=== PATIENT | female | born 1990 | race Caucasian/White ===

== ENCOUNTER 2020-12-11 00:02 | Inpatient (IN) ==
[2020-12-11] MEDS ORDERED: ONDANSETRON 4 MG TAB.RAPDIS PO PRN (00:06)
[2020-12-11] MEDS ORDERED: INSULIN REGULAR, HUMAN 100 UNITS in NORMAL SALINE 100 ML IV PRN ×2 (00:06)
[2020-12-11] MEDS ORDERED: OXYTOCIN/0.9 % SODIUM CHLORIDE 30 UNITS/500 ML BAG IV ONE (00:06)
[2020-12-11] MEDS ORDERED: MISOPROSTOL 100 MCG TABLET VG PRN (00:09)
--- NOTE | 2020-12-11 11:35 | HP ---
Chief Complaint - Chief Complaint Date of Service: 12/11/20 Time of Service: 10:45 Chief Complaint: Medical induction of labor History of Present Illness: 30 yo at 39w0d admitted for induction of labor due to type 2 DM well controlled on diet. This complicated by anemia, asthma, anxiety, depression, type 2 DM, and obesity. Rh positive Rubella immune GBS negative Medical History (Last Reviewed 12/11/20 @ 11:12 by Enrique Das DO) Anemia affecting (Acute) Onset Date: 09/28/20 Ovarian cyst (Acute) 3.14cm simple cyst on 05/12/20. History of gestational diabetes mellitus (GDM) (Chronic) Asthma (Inactive) Generalized anxiety disorder (Chronic) Major depressive disorder, recurrent, moderate (Inactive) Anemia Onset Date: Unknown Anxiety Onset Date: ~08/2017 Asthma Onset Date: ~2014 Exercised induced. Has used inhaler 2-3 times in the last 6 months. (05/12/2020) Body piercing Common migraine Onset Date: ~2014 Depression Onset Date: ~08/2017 Vitiligo Gestational diabetes Onset Date: ~2017 Failed 1 hour at 8 weeks, 3 hour gtt at 10 weeks last - levels checked due to family history. Insulin controlled. Last eye exam 2017. No follow-up testing post . depression UTI (urinary tract infection) Eye exam normal Onset Date: ~2017 Surgical History: Surgical History (Last Reviewed 12/11/20 @ 11:12 by Enrique Das DO) [place] teeth extracted Onset Date: ~2008 Family History: Family History (Last Reviewed 12/11/20 @ 11:12 by Enrique Das DO) Mother Hypertension Gestational diabetes Father Sleep apnea Hyperlipemia Diabetes Grandfather Diabetes Paternal Hyperlipemia Paternal Grandmother Diabetes Grandfather Diabetes Maternal Grandmother Diabetes Maternal Social History: (Last Reviewed 12/11/20 @ 11:12 by Enrique Das DO) Social History: adopted: No Marital status: lives independently: No household members: spouse current occupational status: employed current occupation: [employer]- [employer] Highest level of school completed/degree received: Bachelor's degree Sexually Active: Yes Service: No Tobacco: Smoking Status: Never smoker Alcohol: alcohol intake: current alcohol intake frequency: holiday/special occasion details: none since +UPT Substance Use: substance use type: does not use Dietary Habits: caffeine: Yes Type: carbonated beverages Exercise: Physical activity type: none Review Of Systems (GEN) - Review of Systems Generalized/Overall Review: Present: No Symptoms Reported EENTM: Present: No Symptoms Reported Respiratory: Present: No Symptoms Reported Cardiac: Present: No Symptoms Reported Abdominal: Present: No Symptoms Reported Genitourinary: Present: No Symptoms Reported Musculoskeletal: Present: No Symptoms Reported Neurological: Present: No Symptoms Reported Skin: Present: No Symptoms Reported Endocrine: Present: No Symptoms Reported Allergies/Adverse Reactions: Allergies Allergy/AdvReac Type Severity Reaction Status Date / Time No Known Allergies Allergy Verified 12/11/20 00:09 Home Medications: HOME MEDICATIONS albuterol sulfate 90 mcg/actuation aerosol inhaler 2 inh IH Q4H PRN 10/25/19 [Last Taken Unknown] escitalopram oxalate 20 mg tablet 20 mg PO DAILY #30 tab 04/08/20 [Last Taken Unknown] hydroxyzine HCl 25 mg tablet 25 mg PO Q4H PRN #30 tab 05/12/20 [Last Taken Unknown] lancets 30 gauge See Rx Instructions [id number] .MEDSUPPLY #100 ea 05/13/20 [Last Taken Unknown] blood sugar diagnostic See Rx Instructions [id number] .MEDSUPPLY #100 ea 05/14/20 [Last Taken Unknown] blood-glucose meter See Rx Instructions [id number] .MEDSUPPLY #1 ea 05/14/20 [Last Taken Unknown] acetone (urine) test See Rx Instructions .ROUTE .MEDSUPPLY #100 ea 06/09/20 [Last Taken Unknown] pen needle, diabetic 31 gauge x 01/10" See Rx Instructions .ROUTE .MEDSUPPLY #100 ea 06/09/20 [Last Taken Unknown] prenat.vits,germaine,[id number]-awfz-odgxc 1 tab PO DAILY 06/09/20 [Last Taken Unknown] ascorbic acid (vitamin C) 500 mg tablet 500 mg PO DAILY #30 tab 09/29/20 [Last Taken Unknown] ferrous sulfate 325 mg (65 mg iron) tablet 325 mg PO DAILY #30 tab 09/29/20 [Last Taken Unknown] magnesium oxide 250 mg PO DAILY #30 tab 09/29/20 [Last Taken Unknown] breast pump See Rx Instructions .ROUTE .MEDSUPPLY #1 ea 11/24/20 [Last Taken Unknown] Exam - Exam Vital Signs: Vital Signs - Last Taken Temp 37.0 C 12/11/20 01:42 Pulse 81 12/11/20 01:42 Resp 16 12/11/20 01:42 BP 133/77 12/11/20 01:42 Pulse Ox 98 12/11/20 01:42 Constitutional: Present: Alert, Oriented x3, Cooperative, No distress ENT Exam: Present: hearing grossly normal Neck: Present: non-tender. Absent: thyromegaly Breasts: Present: Exam deferred Respiratory: Present: lungs clear, no respiratory distress Cardiovascular/Chest: Present: normal peripheral pulses, regular rate, rhythm, no edema Abdomen: Present: soft, nontender, no rebound tenderness /Rectal: Present: Other Extremity: Present: non-tender, no pedal edema, no calf tenderness Skin Exam: Present: normal color, warm/dry, no cyanosis Lymphatic: Present: no adenopathy Neurologic: Present: normal mood/affect, oriented x 3 Appearance: Present: appropriate appearance, appropriate insight Eye contact: Present: cooperative, good eye contact Thoughts: Present: normal mood /affect Assessment/Plan - Assessment/Plan (1) Type 2 diabetes mellitus affecting , antepartum Assessment: Admit for induction of labor. Epidural and pitocin PRN. Routine DM management in labor. Problem: Chronic (2) Asthma Problem: Inactive Qualifiers: Asthma severity: mild Asthma persistence: intermittent Asthma complication type: uncomplicated Qualified Code(s): J45.20 - Mild intermittent asthma, uncomplicated (3) Anemia affecting Problem: Chronic Qualifiers: Trimester: third trimester Qualified Code(s): O99.013 - Anemia complicating , third trimester (4) Generalized anxiety disorder Problem: Chronic (5) Major depressive disorder, recurrent, moderate Problem: Inactive (6) BMI 35.0-35.9,adult Problem: Chronic
--- NOTE | 2020-12-11 11:38 | PN ---
Progess Note - Interim Date: 12/11/20 Time: 10:45 Narrative: 12/11/20 11:35 Patient feeling only occasional contraction Vital signs stable. 1 hour postprandial blood sugar 64. FHT: 135 baseline, reassuring contractions q 2-3 min Cervix: 2/50/-3, cervical Ladd bulb inserted and inflated to 75 mL with sterile saline. Impression: Intrauterine at 39 weeks induction of labor for type 2 diabetes. Plan: Continue present plan
[2020-12-11] MEDS: RINGER'S SOLUTION,LACTATED 1,000 ML IV ONE ×2 (18:20→20:13)
--- NOTE | 2020-12-11 18:24 | PN ---
Progess Note - Interim Date: 12/11/20 Time: 18:22 Narrative: 12/11/20 18:22 Patient becoming more uncomfortable with contractions and desires epidural Vital signs stable. Blood sugars all below 100. FHT: 135 baseline, reassuring contractions q 2-3 min Cervix: 3-4/75/-2, AROM-clear Impression: Intrauterine at 39 weeks induction of labor for type 2 diabetes. Plan: We will request epidural and anticipate normal spontaneous vaginal delivery later tonight.
[2020-12-11] MEDS ORDERED: BUPIVACAINE HCL/0.9 % NACL/PF 250 ML EP PRN (18:31)
[2020-12-11] MEDS ORDERED: NALOXONE HCL 1 MG/1 ML SYRG IV PRN (18:31)
[2020-12-11] MEDS ORDERED: ONDANSETRON HCL/PF 2 MG/ML VIAL IV PRN (18:31)
[2020-12-11] MEDS ORDERED: fentaNYL CITRATE/PF 50 MCG/ML AMPUL IT SCH (18:45)
--- NOTE | 2020-12-11 19:14 | ANES ---
Anesthesia Pre Procedure Eval Vitals/Labs: Last Vital Signs Temp 37.0 C 12/11/20 01:42 Pulse 81 12/11/20 01:42 Resp 16 12/11/20 01:42 BP 133/77 12/11/20 01:42 Pulse Ox 98 12/11/20 01:42 HOME MEDICATIONS albuterol sulfate 90 mcg/actuation aerosol inhaler 2 inh IH Q4H PRN 10/25/19 [Last Taken Unknown] escitalopram oxalate 20 mg tablet 20 mg PO DAILY #30 tab 04/08/20 [Last Taken Unknown] hydroxyzine HCl 25 mg tablet 25 mg PO Q4H PRN #30 tab 05/12/20 [Last Taken Unknown] lancets 30 gauge See Rx Instructions [id number] .MEDSUPPLY #100 ea 05/13/20 [Last Taken Unknown] blood sugar diagnostic See Rx Instructions [id number] .MEDSUPPLY #100 ea 05/14/20 [Last Taken Unknown] blood-glucose meter See Rx Instructions [id number] .MEDSUPPLY #1 ea 05/14/20 [Last Taken Unknown] acetone (urine) test See Rx Instructions .ROUTE .MEDSUPPLY #100 ea 06/09/20 [Last Taken Unknown] pen needle, diabetic 31 gauge x 01/10" See Rx Instructions .ROUTE .MEDSUPPLY #100 ea 06/09/20 [Last Taken Unknown] prenat.vits,germaine,lbo-gysu-iwyvp 1 tab PO DAILY 06/09/20 [Last Taken Unknown] ascorbic acid (vitamin C) 500 mg tablet 500 mg PO DAILY #30 tab 09/29/20 [Last Taken Unknown] ferrous sulfate 325 mg (65 mg iron) tablet 325 mg PO DAILY #30 tab 09/29/20 [Last Taken Unknown] magnesium oxide 250 mg PO DAILY #30 tab 09/29/20 [Last Taken Unknown] breast pump See Rx Instructions .ROUTE .MEDSUPPLY #1 ea 11/24/20 [Last Taken Unknown] Allergies/Adverse Reactions: Allergies Allergy/AdvReac Type Severity Reaction Status Date / Time No Known Allergies Allergy Verified 12/11/20 00:09 - Planned Procedure Planned Procedure: medical induction of labor Medication List Reviewed:: Yes Allergies Verified: Yes Medical History (Last Reviewed 12/11/20 @ 19:13 by Idris Abel CRNA) Anemia affecting (Chronic) Onset Date: 09/28/20 Ovarian cyst (Acute) 3.14cm simple cyst on 05/12/20. History of gestational diabetes mellitus (GDM) (Chronic) Asthma (Inactive) Generalized anxiety disorder (Chronic) Major depressive disorder, recurrent, moderate (Inactive) Anemia Onset Date: Unknown Anxiety Onset Date: ~08/2017 Asthma Onset Date: ~2014 Exercised induced. Has used inhaler 2-3 times in the last 6 months. (05/12/2020) Body piercing Common migraine Onset Date: ~2014 Depression Onset Date: ~08/2017 Vitiligo Gestational diabetes Onset Date: ~2017 Failed 1 hour at 8 weeks, 3 hour gtt at 10 weeks last - levels checked due to family history. Insulin controlled. Last eye exam 2017. No follow-up testing post . depression UTI (urinary tract infection) Eye exam normal Onset Date: ~2017 Surgical History (Last Reviewed 12/11/20 @ 19:13 by Idris Abel CRNA) [place] teeth extracted Onset Date: ~2008 Family History (Last Reviewed 12/11/20 @ 19:13 by Idris Abel CRNA) Mother Hypertension Gestational diabetes Father Sleep apnea Hyperlipemia Diabetes Grandfather Diabetes Paternal Hyperlipemia Paternal Grandmother Diabetes Grandfather Diabetes Maternal Grandmother Diabetes Maternal - Family Anesthesia History Family History:: no untoward family reactions to anesthesia, no familial bleeding tendencies, no family history of clotting disorders, no family history of premature - Airway/Neck/Teeth Within Normal Limits:: Yes Teeth Condition: intact Neck Exam: full range of motion Mallampatti Score: 2 Thyromental (T-M) distance: > 6 cm Mandibulo Hyoid distance: > 3 cm - Respiratory Respiratory History: asthma Respiratory Physical: lungs clear Sleep Apnea currently treated: No Sleep Apnea by current assessment: No - Cardiovascular Tolerate Activity: Fair Heart Sounds: S1 & S2 - Gastrointestinal NPO since: this afternoon - Anesthesia Assessment and Plan ASA Class: PS, II, E Anesthesia Type Plan: Epidural - CSE for labor analgesia
--- NOTE | 2020-12-11 19:36 | ANES ---
Anesthesia Procedure Note Procedure Note: ANESTHESIA PROCEDURE NOTE Date of Procedure: 12/11/2020 Time of procedure: 1814. Performed by: PAULY Reyes CRNA, MSN Concrete Gun Operator: Afsaneh Gutierrez RN. Preprocedure diagnosis: Active labor, labor pain. Post procedure diagnosis: Same. Procedure:Epidural for labor analgesia L3-4. Indications: Labor pain. Findings: See below. Details of the procedure: The patient was placed on the side of the bed in sitting positionand prepped with DuraPrep then draped in a sterile fashion. Lidocaine 1% was infiltrated to the skin and subcutaneous tissues at the level of the L3-4 interspace. An 18-gauge Touhy needle was used to approach the epidural space with loss of resistance technique. Once loss of resistance was achieved a 27-gauge spinal needle was passed through the epidural needle and CSF was contacted. After CSF returned, 20 mcg of fentanyl was injected in the spinal needle was removed the epidural catheter was then threaded approximately 4 cm in the epidural needle was removed. The catheter was taped in place and after careful aspiration 3 mL of 1.5% lidocaine with 1-200,000 epinephrine was injected without change in maternal heart rate or sensorium. . EBL: Minimal. Fluids: N/A. Specimen: N/A. Post procedure condition: The patient tolerated the procedure well with good relief. No complications were noted. Thank you for this consultation. Idris Abel CRNA, ARNP, MSN
--- NOTE | 2020-12-11 19:37 | ANES ---
Post Anesthesia Discharge - Transfer of Care Transfer of Care handoff given to nurse: Yes - Discharge from PACU Discharge from PACU when meets criteria: Yes - Comfortable post CSE.
--- NOTE | 2020-12-11 19:47 | ANES ---
Post Anesthesia Assessment - Vital Signs Vitals: Last Vital Signs Temp 37.0 C 12/11/20 01:42 Pulse 81 12/11/20 01:42 Resp 16 12/11/20 01:42 BP 133/77 12/11/20 01:42 Pulse Ox 98 12/11/20 01:42 Airway Patency: Normal - Mental Status Level Of Consciousness: Awake, Alert, Appropriate - Pain Level Pain Score: 0 - N/V Assessment Nausea/Vomiting Presence: None Dehydration:: No
[2020-12-12] MEDS ORDERED: SENNOSIDES 8.6 MG TABLET PO PRN (02:00)
[2020-12-12] MEDS ORDERED: oxyCODONE HCL/ACETAMINOPHEN 1 TAB TABLET PO PRN (02:00)
[2020-12-12] MEDS ORDERED: IBUPROFEN 800 MG TABLET PO PRN ×2 (02:00→03:00)
[2020-12-12] MEDS ORDERED: BENZOCAINE/MENTHOL 81 SPRAY CAN TP PRN (02:00)
[2020-12-12] MEDS ORDERED: NON-FORMULARY 1 DOSE DOSE (Breast Pump device) TP SCH (02:00)
[2020-12-12] MEDS ORDERED: GLYCERIN/WITCH HAZEL LEAF 40 APPL BOX TP PRN (02:00)
[2020-12-12] MEDS ORDERED: HYDROCORTISONE 30 APPL TUBE TP PRN (02:00)
[2020-12-12] MEDS ORDERED: BISACODYL 10 MG SUPP.RECT RC PRN (02:00)
[2020-12-12] MEDS ORDERED: hydrOXYzine HCL 25 MG TABLET PO PRN (02:00)
[2020-12-12] MEDS ORDERED: OXYTOCIN/0.9 % SODIUM CHLORIDE 30 UNITS/500 ML BAG IV ONE (02:00)
[2020-12-12] MEDS ORDERED: ALBUTEROL SULFATE 200 PUFF INHALER IH PRN (02:00)
--- NOTE | 2020-12-12 02:10 | OR ---
Operative Report - Dictated Report Narrative: Spontaneous vaginal delivery of vigorously crying viable female at 0138 on 12/12/2020 with Apgars 9 and 9, weighing 3068 g in JONE position with tight nuchal cord x1. Cord clamping delayed approximately 1 minute Placenta delivered complete, intact, with three vessel cord Estimated blood loss: Less than 50 ml Anesthesia: Epidural Lacerations: None History for MU History for MU Definition: * The number of deliveries resulting in a live the patient experienced prior to current hospitalization * The previous delivery of live twins or any live multiple gestation is considered one live event. *If primagravida or nulliparous is documented select zero for the number of previous live births. Live Events: Live Events: 1
[2020-12-12] MEDS: IBUPROFEN 800 MG TABLET PO PRN ×3 (02:20→16:08)
[2020-12-12] MEDS: PRENATAL VITS96/IRON FUM/FOLIC 1 TAB TABLET PO SCH (08:26)
[2020-12-12] MEDS: DOCUSATE SODIUM 100 MG CAPSULE PO SCH ×2 (08:27→20:33)
[2020-12-12] MEDS: ASCORBIC ACID 500 MG TABLET PO SCH (08:27)
[2020-12-12] MEDS: FERROUS SULFATE 325 MG TABLET PO SCH (08:27)
[2020-12-12] MEDS: ESCITALOPRAM OXALATE 10 MG TAB PO SCH (08:30)
[2020-12-12] MEDS ORDERED: MAGNESIUM OXIDE 400 MG TABLET PO SCH (09:00)
[2020-12-13] MEDS: IBUPROFEN 800 MG TABLET PO PRN ×2 (00:42→13:21)
[2020-12-13] MEDS: FERROUS SULFATE 325 MG TABLET PO SCH (08:57)
[2020-12-13] MEDS: ESCITALOPRAM OXALATE 10 MG TAB PO SCH (08:57)
[2020-12-13] MEDS: PRENATAL VITS96/IRON FUM/FOLIC 1 TAB TABLET PO SCH (08:57)
[2020-12-13] MEDS: DOCUSATE SODIUM 100 MG CAPSULE PO SCH ×2 (08:57→20:53)
[2020-12-13] MEDS: ASCORBIC ACID 500 MG TABLET PO SCH (08:58)
--- NOTE | 2020-12-13 09:46 | PN ---
Subjective - Date and Time Seen Date: 12/13/20 Time: 09:44 Objective - Vitals Vitals: Last Vital Signs Temp 36 C 12/13/20 07:05 Pulse 75 12/13/20 07:05 Resp 16 12/13/20 07:05 BP 135/77 12/13/20 09:34 Pulse Ox 95 12/13/20 00:49 Patient denies complaints. Specifically denies headache, epigastric pain, or visual changes. Lochia wnl abdomen - soft, nontender Uterus -firm, at umbilicus - 1 No calf tenderness 2 elevated blood pressures this morning in the mild range. Fasting blood sugar 65, 1 hour postprandial 141. Impression: day #1 - s/p spontaneous vaginal delivery. Type 2 rose betes-stable. Elevated blood pressure x2 possibly due to lack of sleep and stress. Plan: Continue routine care. Monitor closely for development of signs/symptoms of preeclampsia. Maintain diabetic diet. Cauti Physician Documentation - Urinary Catheter Management Urethral (Ladd) Date of Insertion: 12/11/20 Time of Insertion: 20:05 Date of Removal: 12/12/20 Time of Removal: 01:15 Assessment/Plan - Problems/Diagnosis (1) Type 2 diabetes mellitus affecting , antepartum Problem: Chronic (2) Asthma Problem: Inactive Qualifiers: Asthma severity: mild Asthma persistence: intermittent Asthma complication type: uncomplicated Qualified Code(s): J45.20 - Mild intermittent asthma, uncomplicated (3) Anemia affecting Problem: Chronic Qualifiers: Trimester: third trimester Qualified Code(s): O99.013 - Anemia complicating , third trimester (4) Generalized anxiety disorder Problem: Chronic (5) Major depressive disorder, recurrent, moderate Problem: Inactive (6) BMI 35.0-35.9,adult Problem: Chronic
--- NOTE | 2020-12-13 15:54 | PN ---
Subjective - Date and Time Seen Date: 12/13/20 Time: 15:50 Subjective Narrative: Patient denies headache, visual changes, or epigastric pain. Complains of some edema. Objective - Vitals Vitals: Last Vital Signs Temp 37.2 C 12/13/20 13:22 Pulse 75 12/13/20 13:22 Resp 16 12/13/20 13:22 BP 155/85 H 12/13/20 15:26 Pulse Ox 96 12/13/20 13:22 - Exam Constitutional: Present: Alert, Oriented x3, Cooperative, No distress ENT Exam: Present: hearing grossly normal Respiratory: Present: no respiratory distress Cardiovascular/Chest: Present: regular rate, rhythm Abdomen: Present: soft, nontender, no rebound tenderness, other - Uterus firm at umbilicus -1 Extremity: Present: non-tender, no calf tenderness, lower extremity edema - 1/4, other - DTR-2/4, no clonus Skin Exam: Present: normal color, warm/dry, no cyanosis Neurologic: Present: alert, normal mood/affect Appearance: Present: appropriate appearance, appropriate insight Eye contact: Present: cooperative, good eye contact Thoughts: Present: normal thought pattern, normal mood /affect Cauti Physician Documentation - Urinary Catheter Management Urethral (Ladd) Date of Insertion: 12/11/20 Time of Insertion: 20:05 Date of Removal: 12/12/20 Time of Removal: 01:15 Assessment/Plan - Problems/Diagnosis (1) hypertension Problem: Acute Narrative: We will check CBC and CMP and monitor for signs symptoms of severe preeclampsia. (2) Type 2 diabetes mellitus affecting , antepartum Problem: Chronic (3) Asthma Problem: Inactive Qualifiers: Asthma severity: mild Asthma persistence: intermittent Asthma complication type: uncomplicated Qualified Code(s): J45.20 - Mild intermittent asthma, uncomplicated (4) Anemia affecting Problem: Chronic Qualifiers: Trimester: third trimester Qualified Code(s): O99.013 - Anemia complicating , third trimester (5) Generalized anxiety disorder Problem: Chronic (6) Major depressive disorder, recurrent, moderate Problem: Inactive (7) BMI 35.0-35.9,adult Problem: Chronic
[2020-12-13 16:07] LABS: Hematocrit 32.6 % (37.0-47.0); Hemoglobin 9.7 gm/dL (12.5-16.0); Mean Cell Volume 76.7 fl (78-100); Mean Corpuscular Hemoglobin 22.8 pg (27-31); Mean Corpuscular Hgb Conc 29.8 g/dl (32-36); Mean Platelet Volume 10.8 fl (8-12.5); Neutrophil # 7.8 K/mm3 (1.3-6.0); Neutrophil % 69.3 % (42-75.0); Platelet Count 333 K/mm3 (150-450); Red Blood Count 4.25 M/mm3 (4.2-5.4); White Blood Count 11.3 K/mm3 (4.0-10.5)
[2020-12-13 16:21] LABS: Albumin * 2.6 gm/dl (3.4-5.0); Anion Gap 11.3 mmol/L (6.8-13.8); BUN/Creatinine Ratio 12.3 (9.0-21.6); Bilirubin, Total 0.1 mg/dL (0.0-1.1); Ca. Corrected For Albumin 9.4 mg/dL (8.4-10.2); Calcium * 8.6 mg/dL (7.9-10.9); Potassium 4.3 mmol/L (3.4-4.6); Total Protein 5.9 gm/dL (6.2-8.2)
[2020-12-14] MEDS: IBUPROFEN 800 MG TABLET PO PRN (01:04)
[2020-12-14 07:31] VITALS: BP 148/81
[2020-12-14] MEDS: ESCITALOPRAM OXALATE 10 MG TAB PO SCH (09:04)
[2020-12-14] MEDS: FERROUS SULFATE 325 MG TABLET PO SCH (09:04)
[2020-12-14] MEDS: ASCORBIC ACID 500 MG TABLET PO SCH (09:04)
[2020-12-14] MEDS: DOCUSATE SODIUM 100 MG CAPSULE PO SCH (09:05)
[2020-12-14] MEDS: PRENATAL VITS96/IRON FUM/FOLIC 1 TAB TABLET PO SCH (09:05)
--- NOTE | 2020-12-14 09:20 | PN ---
Subjective - Date and Time Seen Date: 12/14/20 Time: 09:18 Objective - Vitals Vitals: Last Vital Signs Temp 36.9 C 12/14/20 07:27 Pulse 73 12/14/20 07:27 Resp 16 12/14/20 07:27 BP 148/81 H 12/14/20 07:27 Pulse Ox 97 12/14/20 07:27 Patient denies complaints. Specifically denies headache, visual changes, or epigastric pain. Lochia wnl abdomen - soft, nontender Uterus -firm, at umbilicus - 2 No calf tenderness Impression: day #2 - s/p spontaneous vaginal delivery. hypertension - mild range. Type 2 diabetes-stable. Plan: Routine discharge instructions. Preeclampsia precautions. Maintain diabetic diet. Home blood pressures twice a day-call for severe range pressures. Follow-up in office for blood pressure check in 1 week. - Abnormal Lab Findings Abnormal Lab Findings: Abnormal Lab Results 12/13/20 12/13/20 Range/Units 16:00 16:00 WBC 11.3 H (4.0-10.5) K/mm3 Hgb 9.7 L (12.5-16.0) gm/dL Hct 32.6 L (37.0-47.0) % MCV 76.7 L (78-100) fl MCH 22.8 L (27-31) pg MCHC 29.8 L (32-36) g/dl RDW 15.0 H (11.5-14.0) % Neutrophils # 7.8 H (1.3-6.0) K/mm3 ALT 18 L (19-67) U/L Total Protein 5.9 L (6.2-8.2) gm/dL Albumin 2.6 L (3.4-5.0) gm/dl Cauti Physician Documentation - Urinary Catheter Management Urethral (Ladd) Date of Insertion: 12/11/20 Time of Insertion: 20:05 Date of Removal: 12/12/20 Time of Removal: 01:15 Assessment/Plan - Problems/Diagnosis (1) hypertension Problem: Acute (2) Type 2 diabetes mellitus affecting , antepartum Problem: Chronic (3) Asthma Problem: Inactive Qualifiers: Asthma severity: mild Asthma persistence: intermittent Asthma complication type: uncomplicated Qualified Code(s): J45.20 - Mild intermittent asthma, uncomplicated (4) Anemia affecting Problem: Chronic Qualifiers: Trimester: third trimester Qualified Code(s): O99.013 - Anemia complicating , third trimester (5) Generalized anxiety disorder Problem: Chronic (6) Major depressive disorder, recurrent, moderate Problem: Inactive (7) BMI 35.0-35.9,adult Problem: Chronic
--- NOTE | 2020-12-14 09:25 | DS ---
OB Discharge Summary (1) hypertension Status: Acute (2) Type 2 diabetes mellitus affecting , antepartum Status: Chronic (3) Asthma Status: Inactive Qualifiers: Asthma severity: mild Asthma persistence: intermittent Asthma complication type: uncomplicated Qualified Code(s): J45.20 - Mild intermittent asthma, uncomplicated (4) Anemia affecting Status: Chronic Qualifiers: Trimester: third trimester Qualified Code(s): O99.013 - Anemia complicating , third trimester (5) Generalized anxiety disorder Status: Chronic (6) Major depressive disorder, recurrent, moderate Status: Inactive (7) BMI 35.0-35.9,adult Status: Chronic Delivery Date: 12/12/20 Delivery Time: 01:38 :: 2 Para:: 2 Gestational weeks:: 39 Gestational days:: 1 Intrapartum Procedures: Spontaneous Vaginal Delivery, Delivered Procedures: None /OP Complications: GHTN Discharge Diagnosis: Term -Delivered - Discharge Information Date of Discharge: 12/14/20 Hospital Course: 30-year-old 2 now para 2 admitted for induction of labor due to type 2 diabetes at 39 weeks. Her labor and delivery were uncomplicated. course complicated by elevated blood pressures with occasional unsustained severe range blood pressures. Patient remained clinically asymptomatic. Platelets and liver enzymes and kidney function were all within normal limits. Patient discharged with preeclampsia precautions, continue ADA diet, follow-up in 1 week for blood pressure check. Discharge Location: Home Disposition: Home self-care Condition: Stable Referrals: Tiffanie Vazquez MD [Primary Care Provider] - Activity on Discharge:: Activity as tolerated, Pelvic Rest Discharge Diet: Other - ADA diet Additional Patient Instructions (free text): Nydia your follow up appointment will need to be scheduled for [address] Das. Lashell's needs to follow up Her blood type is O+ Discharge weight is 6 lbs. 8.1 oz Continue to breastfeed her at least every 2-3 hours or on demand. Always place her on her back to sleep in her own bassinet or crib. No loose blankets, bumper pads, stuffed animals or pillows. Thank you for choosing [facility]. If you have any questions or concerns please don't hesitate to call us at [phone]. [facility] [phone] [facility] [phone] Prescriptions (Any new or edited meds): Escitalopram Oxalate [Lexapro] 20 mg PO DAILY #30 tab Transmission Status: Received by [employer] #[id number] Ibuprofen [Motrin] 200 - 800 mg PO Q6H PRN #100 tab PRN Reason: Pain Complete Home Medications List: Complete Home Medication List: albuterol sulfate 90 mcg/actuation aerosol inhaler 2 inh IH Q4H PRN 10/25/19 hydroxyzine HCl 25 mg tablet 25 mg PO Q4H PRN #30 tab 05/12/20 prenat.vits,germaine,sef-bbfc-mpkap 1 tab PO DAILY 06/09/20 ascorbic acid (vitamin C) 500 mg tablet 500 mg PO DAILY #30 tab 09/29/20 ferrous sulfate 325 mg (65 mg iron) tablet 325 mg PO DAILY #30 tab 09/29/20 breast pump See Rx Instructions .ROUTE .MEDSUPPLY #1 ea 11/24/20 Albuterol Sulfate [Ventolin HFA] 2 puff IH Q4H PRN inhaler 12/13/20 Escitalopram Oxalate [Lexapro] 20 mg PO DAILY #30 tab 12/13/20 Ibuprofen [Motrin] 200 - 800 mg PO Q6H PRN #100 tab 12/13/20 - Plan Discharge to:: Home Follow up in office in:: 1 week - [place] Information Weight (Grams): 3,068 Infant Sex: Female Score 1 min: 9 Score 5 min: 9 Infant Complications: None Other Complications: Tight NC x 1. Maternal type 2 DM
== END 2020-12-14 11:50 | disposition home or self-care (01) | DRG 806 ==
LOC: OB 00:02
PROVIDERS: ADMIT Obstetrics & Gynecology; ATTEND Obstetrics & Gynecology